=== PATIENT | female | born 1985 | race Caucasian/White ===

== ENCOUNTER 2016-09-30 22:55 | Emergency (ER) | payer OTHER ==
--- NOTE | 2016-09-30 23:24 | ED ORDER SUMMARY ---
..... Patient: YASMINE MARROQUIN OrderSheet [facility] VisitID: [id number] [place] [address] 31y, F Registration Date/Time: 09/30/2016 ORDER SHEET Weight: 77.1 kg (stated) Allergies: Estrogens, Naproxen GENERAL ORDERS: Splint (UE) (Left) (Velcro - wrist) (23:23 09/30/2016 Araceli A.R.N.P.) (23:24 Brenda Gan.NDee) MEDICATION ORDERS: IV FLUIDS: ORDER SHEET NOTES: [Electronically signed by Jorge Fontaine R.N. (23:43 09/30/2016)] [Electronically signed by Rachel BolanosR.N.PDee (23:45 09/30/2016)] [Electronically locked/signed by Jorge Fontaine R.N. (23:43 09/30/2016)]
--- NOTE | 2016-09-30 23:24 | ED CLINICAL REPORT ---
Clinical Report - Physicians/Mid Levels [facility] [address] [place] [address] 09/30/2016 22:57 Patient: YASMINE MARROQUIN Time Seen: 2317; upon arrival, initial patient contact, initial documentation, patient care assumed. Arrived- By private vehicle. Historian- patient. HISTORY OF PRESENT ILLNESS Chief Complaint: PARESTHESIA. 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 The patient has had new onset of localized numbness of the left hand (mild). No weakness, tingling or impaired speech. No dizziness, altered mental status, seizure or blackouts. Usually is alert and oriented X3 and has normal mobility. Similar symptoms previously: Occasionally, as bad. ( only happened at night during sleep, hasn't happened when awake before). Recent medical care: Not recently seen/assessed. REVIEW OF SYSTEMS All systems otherwise negative, except as recorded above. PAST HISTORY See nurses notes. ( PROBLEMS: Dental Pain. Hypertension. UTI - Urinary Tract Infection. Hemorrhoids. Constipation. Ectopic . Ovarian Cyst. Abd pain. Atypical Chest Pain. Immunizations. LNMP - Last Normal Menstrual Period. --23:20 Jorge Fontaine, RDeeN.). SOCIAL HISTORY Light tobacco smoker- less than 1/2 a pack per day. Occasional alcohol use. No drug use. Is a local resident. FAMILY HISTORY Negative. ADDITIONAL NOTES The nursing notes have been reviewed with agreement regarding the chief complaint, HPI, ROS, PMH and patient medications and allergies. PHYSICAL EXAM Vital Signs: 09/30/2016 23:17 BP: 113/83. HR: 84. RR: 16. O2 saturation: 100%. Temp: 98.5 F. Have been reviewed as normal and appear to be correct. Appearance: Alert. No acute distress. Eyes: Pupils equal, round and reactive to light. Neck: Normal inspection. Neck supple. CVS: Pulses normal. Respiratory: No respiratory distress. Skin: Skin warm and dry. Normal skin color. No rash. Normal skin turgor. Extremities: Extremities exhibit normal ROM. No lower extremity edema. Neuro: Alert. Oriented X 3. Mood/affect normal. Speech normal. Cranial nerves normal (as tested). No cerebellar findings. No motor deficit. No sensory deficit. PROGRESS AND PROCEDURES Course of Care: 23:25 09/30/16. pt has johnie for frequent large quantity narcs, tramadol #120, hydrocodone #45, consistently every month, see report for full details. Patient counseled in person regarding the patient's stable condition and diagnosis. Differential Diagnosis: Other possible considerations: carpal tunnel, wrist sprain, parasthesia, tia, cva, nerve impingement. Above considerations are based on history and physical exam. Differential diagnosis was discussed with patient. Disposition: Discharged home in good and unchanged condition (23:23). Condition: good and stable. CLINICAL IMPRESSION Paresthesia INSTRUCTIONS Wear splint as needed. Warnings: GENERAL WARNINGS: Return or contact your physician immediately if your condition worsens or changes unexpectedly, if not improving as expected, or if other problems arise. Specifically return if problem worsens. Understanding of the discharge instructions verbalized by patient. (Electronically signed by Rachel Bolanos A.R.N.P. 09/30/2016 23:45)
--- NOTE | 2016-09-30 23:24 | ED CLINICAL REPORT ---
Clinical Report - Physicians/Mid Levels [facility] [address] [place] [address] 09/30/2016 22:57 Patient: YASMINE MARROQUIN Time Seen: 2317; upon arrival, initial patient contact, initial documentation, patient care assumed. Arrived- By private vehicle. Historian- patient. HISTORY OF PRESENT ILLNESS Chief Complaint: PARESTHESIA. 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 The patient has had new onset of localized numbness of the left hand (mild). No weakness, tingling or impaired speech. No dizziness, altered mental status, seizure or blackouts. Usually is alert and oriented X3 and has normal mobility. Similar symptoms previously: Occasionally, as bad. ( only happened at night during sleep, hasn't happened when awake before). Recent medical care: Not recently seen/assessed. REVIEW OF SYSTEMS All systems otherwise negative, except as recorded above. PAST HISTORY See nurses notes. ( PROBLEMS: Dental Pain. Hypertension. UTI - Urinary Tract Infection. Hemorrhoids. Constipation. Ectopic . Ovarian Cyst. Abd pain. Atypical Chest Pain. Immunizations. LNMP - Last Normal Menstrual Period. --23:20 Jorge Fontaine, RDeeN.). SOCIAL HISTORY Light tobacco smoker- less than 1/2 a pack per day. Occasional alcohol use. No drug use. Is a local resident. FAMILY HISTORY Negative. ADDITIONAL NOTES The nursing notes have been reviewed with agreement regarding the chief complaint, HPI, ROS, PMH and patient medications and allergies. PHYSICAL EXAM Vital Signs: 09/30/2016 23:17 BP: 113/83. HR: 84. RR: 16. O2 saturation: 100%. Temp: 98.5 F. Have been reviewed as normal and appear to be correct. Appearance: Alert. No acute distress. Eyes: Pupils equal, round and reactive to light. Neck: Normal inspection. Neck supple. CVS: Pulses normal. Respiratory: No respiratory distress. Skin: Skin warm and dry. Normal skin color. No rash. Normal skin turgor. Extremities: Extremities exhibit normal ROM. No lower extremity edema. Neuro: Alert. Oriented X 3. Mood/affect normal. Speech normal. Cranial nerves normal (as tested). No cerebellar findings. No motor deficit. No sensory deficit. PROGRESS AND PROCEDURES Course of Care: 23:25 09/30/16. pt has johnie for frequent large quantity narcs, tramadol #120, hydrocodone #45, consistently every month, see report for full details. Patient counseled in person regarding the patient's stable condition and diagnosis. Differential Diagnosis: Other possible considerations: carpal tunnel, wrist sprain, parasthesia, tia, cva, nerve impingement. Above considerations are based on history and physical exam. Differential diagnosis was discussed with patient. Disposition: Discharged home in good and unchanged condition (23:23). Condition: good and stable. CLINICAL IMPRESSION Paresthesia INSTRUCTIONS Wear splint as needed. Warnings: GENERAL WARNINGS: Return or contact your physician immediately if your condition worsens or changes unexpectedly, if not improving as expected, or if other problems arise. Specifically return if problem worsens. Understanding of the discharge instructions verbalized by patient. (Electronically signed by Rachel Bolanos A.R.N.P. 09/30/2016 23:45)
--- NOTE | 2016-09-30 23:24 | ED NURSING NOTES ---
Clinical Report - Nurses [facility] [place] [address] 09/30/2016 22:57 Patient: YASMINE MARROQUIN TRIAGE Triage time 23:17. Acuity: LEVEL 4. Chief Complaint: LEFT UPPER EXTREMITY NUMBNESS and TINGLING. Location of symptoms- left hand, left thumb, left 2nd finger, left 3rd finger, left 4th finger and left 5th finger. --23:22 Jorge Fontaine R.N. 23:17 09/30/16. BP: 113/83. HR: 84. RR: 16. O2 saturation: 100%. Temp: 98.5 F. --23:22 Jorge Fontaine R.N. Weight: 77.1 kg stated. Height/Length: 68 inches Per Patient. BMI: 25.9. --23:18 Jorge Fontaine R.N. Medications None. --23:19 Jorge Fontaine R.N. Medication/allergy information source: the patient. --23:22 Jorge Fontaine R.N. Allergies Estrogens. Naproxen. --23:19 Jorge Fontaine R.N. History Arrived by private vehicle. Historian: patient. Accompanied by friend. ( Tingling and numbness started on the fingers up to the hand/forearm, no injury.). This occurred today. 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 SOCIAL HX: Heavy tobacco smoker (cigarette)- 1-2 packs per day. --23:22 Jorge Fontaine R.N. PROBLEMS: Dental Pain. Hypertension. UTI - Urinary Tract Infection. Hemorrhoids. Constipation. Ectopic . Ovarian Cyst. Abd pain. Atypical Chest Pain. Immunizations. LNMP - Last Normal Menstrual Period. --23:20 Jorge Fontaine R.N. Interventions ID band on patient. To room. --23:22 Jorge Fontaine R.N. PHYSICAL ASSESSMENT Ambulatory to room. GENERAL / NEURO / PSYCH: Oriented X 4. Alert. Appears in no acute distress. EXTREMITIES: Extremities exhibit normal ROM. Neuro-vascular status intact to the extremity. No upper extremity edema. Skin is non-tender on the extremities. Left forearm: (numbness/tingling). Left wrist: (numbness/tingling). Left hand: (numbness/tingling). SKIN: Skin intact. Skin is warm and dry. --23:24 Jorge Fontaine R.N. NURSING PROGRESS NOTES Patient identifiers checked. Call light placed in reach. Bed placed in lowest position. Brakes of bed on. Patient ready for evaluation- HOME SALES SERVICE PROFESSIONAL notified. --23:24 Jorge Fontaine R.N. Volar velcro upper extremity splint applied to left wrist. Distal pulses intact, sensation intact and motor within normal limits. --23:31 Lisa Vela. DISPOSITION / DISCHARGE Condition at departure: improved and stable. No learning barriers present. Discharge instructions provided and reviewed with the patient. Reviewed referral to a primary care physician. Patient verbalized understanding. Written instructions provided in [place]. The patient was discharged home and accompanied by prepress proofer. She left the Emergency Department ambulatory and via private vehicle. Patient driving. --23:42 Jorge Fontaine R.N. 23:42 09/30/16. BP: 111/79. HR: 82. RR: 16. O2 saturation: 99%. Pain level now 0/10. --23:42 Jorge Fontaine R.N. Departure time: 23:42. --23:42 Jorge Fontaine R.N. Locked/Released at 09/30/2016 23:43 by Jorge Fontaine R.N.
--- NOTE | 2016-09-30 23:24 | ED NURSING NOTES ---
Clinical Report - Nurses [facility] [place] [address] 09/30/2016 22:57 Patient: YASMINE MARROQUIN TRIAGE Triage time 23:17. Acuity: LEVEL 4. Chief Complaint: LEFT UPPER EXTREMITY NUMBNESS and TINGLING. Location of symptoms- left hand, left thumb, left 2nd finger, left 3rd finger, left 4th finger and left 5th finger. --23:22 Jorge Fontaine R.N. 23:17 09/30/16. BP: 113/83. HR: 84. RR: 16. O2 saturation: 100%. Temp: 98.5 F. --23:22 Jorge Fontaine R.N. Weight: 77.1 kg stated. Height/Length: 68 inches Per Patient. BMI: 25.9. --23:18 Jorge Fontaine R.N. Medications None. --23:19 Jorge Fontaine R.N. Medication/allergy information source: the patient. --23:22 Jorge Fontaine R.N. Allergies Estrogens. Naproxen. --23:19 Jorge Fontaine R.N. History Arrived by private vehicle. Historian: patient. Accompanied by friend. ( Tingling and numbness started on the fingers up to the hand/forearm, no injury.). This occurred today. 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 SOCIAL HX: Heavy tobacco smoker (cigarette)- 1-2 packs per day. --23:22 Jorge Fontaine R.N. PROBLEMS: Dental Pain. Hypertension. UTI - Urinary Tract Infection. Hemorrhoids. Constipation. Ectopic . Ovarian Cyst. Abd pain. Atypical Chest Pain. Immunizations. LNMP - Last Normal Menstrual Period. --23:20 Jorge Fontaine R.N. Interventions ID band on patient. To room. --23:22 Jorge Fontaine R.N. PHYSICAL ASSESSMENT Ambulatory to room. GENERAL / NEURO / PSYCH: Oriented X 4. Alert. Appears in no acute distress. EXTREMITIES: Extremities exhibit normal ROM. Neuro-vascular status intact to the extremity. No upper extremity edema. Skin is non-tender on the extremities. Left forearm: (numbness/tingling). Left wrist: (numbness/tingling). Left hand: (numbness/tingling). SKIN: Skin intact. Skin is warm and dry. --23:24 Jorge Fontaine R.N. NURSING PROGRESS NOTES Patient identifiers checked. Call light placed in reach. Bed placed in lowest position. Brakes of bed on. Patient ready for evaluation- HOSPITAL DIRECTOR notified. --23:24 Jorge Fontaine R.N. Volar velcro upper extremity splint applied to left wrist. Distal pulses intact, sensation intact and motor within normal limits. --23:31 Lisa Vela. DISPOSITION / DISCHARGE Condition at departure: improved and stable. No learning barriers present. Discharge instructions provided and reviewed with the patient. Reviewed referral to a primary care physician. Patient verbalized understanding. Written instructions provided in [place]. The patient was discharged home and accompanied by repair technician. She left the Emergency Department ambulatory and via private vehicle. Patient driving. --23:42 Jorge Fontaine R.N. 23:42 09/30/16. BP: 111/79. HR: 82. RR: 16. O2 saturation: 99%. Pain level now 0/10. --23:42 Jorge Fontaine R.N. Departure time: 23:42. --23:42 Jorge Fontaine R.N. Locked/Released at 09/30/2016 23:43 by Jorge Fontaine R.N.
--- NOTE | 2016-09-30 23:24 | ED ORDER SUMMARY ---
..... Patient: YASMINE MARROQUIN OrderSheet [facility] VisitID: [id number] [place] [address] 31y, F Registration Date/Time: 09/30/2016 ORDER SHEET Weight: 77.1 kg (stated) Allergies: Estrogens, Naproxen GENERAL ORDERS: Splint (UE) (Left) (Velcro - wrist) (23:23 09/30/2016 Araceli A.R.N.P.) (23:24 Brenda Gan.NDee) MEDICATION ORDERS: IV FLUIDS: ORDER SHEET NOTES: [Electronically signed by Jorge Fontaine R.N. (23:43 09/30/2016)] [Electronically signed by Rachel BolanosR.N.PDee (23:45 09/30/2016)] [Electronically locked/signed by Jorge Fontaine R.N. (23:43 09/30/2016)]
--- NOTE | 2016-09-30 23:45 | ED DISCHARGE INSTRUCTIONS ---
Patient: YASMINE MARROQUIN General Instructions [facility] VisitID: [id number] [place] [address] 31y, F Registration Date/Time: 09/30/2016 Paresthesia INSTRUCTIONS Wear splint as needed. Warnings: GENERAL WARNINGS: Return or contact your physician immediately if your condition worsens or changes unexpectedly, if not improving as expected, or if other problems arise. Specifically return if problem worsens. Understanding of the discharge instructions verbalized by patient. ADDITIONAL INFORMATION Paraesthesias Paraesthesia refers to a burning or prickling sensation that is sometimes felt in the hands, arms, legs or feet. It can also occur in other parts of the body. It can also feel like tingling or numbness, skin crawling or itching.The sensation is usually painless. Most people have experienced pins and needles. This feeling happens when legs have been crossed for too long and pressure is placed on a nerve. This is a temporary paraesthesia. It quickly goes away once the pressure is relieved. There are many possible causes for chronic paraesthesias. These include such disorders as stroke, herniated disk (pressing on a nerve), trapped nerve in the shoulder, elbow or wrist (such as carpal tunnel syndrome), vitamin deficiencies or even certain medicines. Laboratory tests are needed to make an accurate diagnosis. These tests may include blood tests, X-ray, CT (computerized tomography) scan or a muscle test (electromyography).Depending on the cause, treatment may include physical therapy. Home Care: Do not make any changes to your medicines without advice from your doctor. If vitamins have been prescribed, remember to take them daily at the recommended dose. Because of a decrease in feeling, a numb hand or foot may be more prone to injury. Take care to protect these areas from cuts, bumps, bruises, montgomery or other injury. Keep your nails trimmed and wash your hands and feet often. Wear shoes that fit well to avoid pressure points, blisters and ulcers. Look at your hands and feet carefully (including the soles of your feet and between your toes) at least once a week and notify your doctor of any open wounds or signs of infection. Follow Up with your doctor or as advised by our staff. You may need further testing to determine the exact cause of your paraesthesia. [NOTE: If blood tests, X-ray, CT scan or electromyography were done, specialists will review them. You will be notified of any new findings that may affect your care.] Get Prompt Medical Attention if any of the following occur: Numbness or weakness of the face, one arm or one leg Slurred speech, confusion, trouble speaking, walking or seeing Severe headache, fainting spell, dizziness or seizure Chest, arm, neck or upper back pain Loss of bladder or bowel control Open wound with redness, swelling or pus Wrist Splint: Velcro A splint is designed to prevent movement of the bones, muscles and tendons of the wrist. Velcro wrist splints are used because of their comfort and convenience. In certain conditions, the splint can be removed when bathing or changing clothes. The condition you are being treated for will determine how long you should wear the splint and if it is safe to remove your splint before your next visit. If you are unsure, ask your nurse or doctor. Get Prompt Medical Attention if any of the following occur: -- Increased pain or swelling under the splint or in the hand or fingers -- Fingers or hand becomes cold, blue, numb or tingly You have been given the following additional information: Paraesthesias Wrist Splint, Velcro (Electronically signed by Rachel Bolanos A.R.N.P. 09/30/2016 23:45)
--- NOTE | 2016-09-30 23:46 | ED MED RECONCILIATION SUMMARY ---
Patient: YASMINE MARROQUIN Medication Reconciliation Report [facility] VisitID: [id number] [address] [place] [address] 31y, F Registration Date/Time: 09/30/2016 Weight: 77.1 kg Height/Length: 68 in. BMI: 25.9 ALLERGIES: Estrogens, Naproxen The patient's Home Medications are listed below: NONE. The source(s) of the original Home Medication information: patient The following Medications were given to the patient in the Emergency Department: None. The following Medications were prescribed to the patient: None.
--- NOTE | 2016-09-30 23:46 | ED MAR SUMMARY ---
..... Medication Administration Record [facility] [address], [place] [id number] Patient: YASMINE MARROQUIN Visit ID: [id number] 31y, F Weight: 77.1 kg Height/Length: 68 in BMI: 25.9 ALLERGIES: Estrogens, Naproxen
--- NOTE | 2016-09-30 23:46 | ED MED RECONCILIATION SUMMARY ---
Patient: YASMINE MARROQUIN Medication Reconciliation Report [facility] VisitID: [id number] [address] [place] [place] [address] 31y, F Registration Date/Time: 09/30/2016 Weight: 77.1 kg Height/Length: 68 in. BMI: 25.9 ALLERGIES: Estrogens, Naproxen The patient's Home Medications are listed below: NONE. The source(s) of the original Home Medication information: patient The following Medications were given to the patient in the Emergency Department: None. The following Medications were prescribed to the patient: None.
--- NOTE | 2016-09-30 23:46 | ED MAR SUMMARY ---
..... Medication Administration Record [facility] [address] [place], [place] [id number] Patient: YASMINE MARROQUIN Visit ID: [id number] 31y, F Weight: 77.1 kg Height/Length: 68 in BMI: 25.9 ALLERGIES: Estrogens, Naproxen
== END 2016-09-30 23:48 | disposition home or self-care (01) ==
LOC: ED SRH 22:55
DX: R20.2 Paresthesia of skin (principal); I10 Essential (primary) hypertension; F17.210 Nicotine dependence, cigarettes, uncomplicated; Z88.6 Allergy status to analgesic agent; Z88.8 Allergy status to other drugs, medicaments and biological substances